=== PATIENT | female | born 1985 | race Caucasian/White ===

== ENCOUNTER 2017-01-13 00:10 | Emergency (ER) | payer MEDICAID ==
[2017-01-13] MEDS ORDERED: Bacitracin Oint 1 GM U/D Packet TOP ONE (00:26)
[2017-01-13] MEDS ORDERED: Diphtheria,Pertussis(Acell),Tetanus Vaccine 0.5 ML Syringe IM ONE (00:26)
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
== END 2017-01-13 00:51 | disposition home or self-care (01) ==
LOC: MW.ED 00:10
DX: T20.00XA Burn of unspecified degree of head, face, and neck, unspecified site, initial encounter (principal); S50.12XA Contusion of left forearm, initial encounter; S50.812A Abrasion of left forearm, initial encounter; Z23 Encounter for immunization; Z79.899 Other long term (current) drug therapy; Y04.8XXA Assault by other bodily force, initial encounter
CPT/HCPCS: 90471; 90715; 99283; 99283-25